=== PATIENT | female | born 1945 | race Caucasian/White ===

== ENCOUNTER 2016-05-01 17:20 | Emergency (ER) | payer OTHER ==
[~2016-05-01] VITALS: Ht 160 cm; Wt 80.7 kg
[2016-05-01 18:41] LABS: HEMOGLOBIN 13.2 gm/dL (12.0-15.0); WBC 9.4 thou/uL (4.0-11.0)
[2016-05-01 18:42] LABS: ABSOLUTE NEUTROPHILS 6.3 thou/uL (1.4-8.2); BASOPHILS 0.5 % (0.0-2.0); HEMATOCRIT 40.3 % (37.0-47.0); LYMPHOCYTES 21.7 % (24.0-44.0); MCH 25.6 pg (26.0-34.0); MCHC 32.8 g/dL (28.0-37.0); MONOCYTES 10.5 % (1.0-8.0); PLATELET COUNT 166 thou/uL (150-400); POLYS 67.3 % (36.0-66.0); RBC 5.17 mil/uL (4.20-5.00); RDW 14.7 % (10.5-14.5)
[2016-05-01 18:44] LABS: MANUAL DIFF NO
[2016-05-01 18:50] LABS: CALCIUM 8.4 mg/dL (8.5-10.1); CREATININE 1.1 mg/dL (0.6-1.3); POTASSIUM 3.7 mmol/L (3.5-5.1)
[2016-05-01 18:54] LABS: ALBUMIN 3.5 g/dL (3.4-5.0); TOTAL BILIRUBIN 0.2 mg/dL (<0.1-1.0); TOTAL PROTEIN 7.1 g/dL (6.4-8.2)
[2016-05-01] MEDS ORDERED: VENTOLIN HFA 1818 GM INH (19:07)
[2016-05-01] MEDS ORDERED: TESSALON PERLE100 MG PO (19:07)
[2016-05-01] MEDS ORDERED: ONDANSETRON HCL4 M2 PO (19:10)
[2016-05-01 19:39] VITALS: BP 121/48
== END 2016-05-01 19:44 | disposition home or self-care (01) ==
LOC: ER 17:20
PROVIDERS: Emergency Medicine
DX: B34.9 Viral infection, unspecified (principal); Z88.5 Allergy status to narcotic agent; Z91.041 Radiographic dye allergy status